=== PATIENT | female | born 1995 | race Caucasian/White ===

== ENCOUNTER 2017-06-02 00:55 | Emergency (ER) | payer MEDICAID ==
[2017-06-02] MEDS ORDERED: lamoTRIgine 100 MG TAB PO ONE (01:04)
[2017-06-02 01:12] VITALS: TEMP 98.4
--- NOTE | 2017-06-02 01:18 | EDPHY ---
H & P Stated Complaint: pt states that she Marek on meth Time Seen by Provider: 06/02/17 01:04 HPI/ROS: Chief Complaint: Seizure, possible meth overdose. HPI: 21 year female with a history of seizure disorder, type 2 diabetes, hypothyroidism and meth abuse. Patient states that she has used methamphetamine the the inhaled all day. She thinks she has smoked up to 6 g. She thinks that after the last 1 she may have overdosed on too much is feeling jittery nauseated. Patient also reporting that she had 2 seizures today. She had 6 seizures 2 days ago was seen at [facility]. At that time they increased her Lamictal to 100 mg twice a day. She has not gotten a prescription filled however. She thinks this was yesterday ago looking the prescription was written 2 days ago. I reviewed her records and she was seen [address] [facility] ([place], [place]) and was given Keppra at that time. Patient to have a tonic- clonic witnessed seizure during the emetic here. She is given 10 mg of Valium IV. Patient has not had any chest pain. Has had some mild palpitations. No shortness of breath. Is mostly complaining of feeling nauseated in general malaise. ROS: 10 point Review of Systems is negative except as noted in the HPI. PMH: Seizure disorder, type 2 diabetes, hypothyroidism Social History: Positive smoking, positive alcohol, positive methamphetamine use Family History: non-contributory Physical Exam: Gen: Awake, Alert, No Distress HEENT: Nose: no rhinorrhea Eyes: PERRLA, EOMI Mouth: Moist mucosa Neck: Supple, no JVD Chest: nontender, lungs clear to auscultation Heart: S1, S2 normal, no murmur Abd: Soft, non-tender, no guarding Back: no CVA tenderness, no midline tenderness Ext: no edema, non-tender Skin: no rash Neuro: CN II-XII intact, Sensation grossly intact, Strength 5/5 in bilateral upper and lower extremities - Personal History LMP (Females 10-55): 15-21 Days Ago Current Tetanus Diphtheria and Acellular Pertussis (TDAP): Unsure - Medical/Surgical History Other PMH: seizures, hypothyroid, hypoglycemia, sleep apnea, reflux, ptsd, border line, multiple personalilty, bipolar, schzophrenia, anxiety - Social History Smoking Status: Current every day smoker Constitutional: Initial Vital Signs Temperature (C) 36.9 C 06/02/17 00:55 Heart Rate 65 06/02/17 00:55 Respiratory Rate 16 06/02/17 00:55 Blood Pressure 148/99 H 06/02/17 00:55 O2 Sat (%) 99 06/02/17 00:55 O2 Delivery Mode Nasal Cannula O2 (L/minute) 2 Allergies/Adverse Reactions: diphenhydramine [From Benadryl] Allergy (Verified 06/02/17 01:04) iodine Allergy (Verified 06/02/17 01:04) kiwi Allergy (Verified 06/02/17 01:04) mushroom Allergy (Verified 06/02/17 01:04) olives Allergy (Uncoded 06/02/17 01:04) peaches Allergy (Uncoded 06/02/17 01:04) seafood Allergy (Uncoded 06/02/17 01:04) Home Medications: Medication Instructions Recorded LaMICtal 06/02/17 Metformin HCl 06/02/17 Prilosec 06/02/17 Synthroid 06/02/17 Wellbutrin Sr 06/02/17 Zoloft 100mg (*) 06/02/17 Medical Decision Making ED Course/Re-evaluation: Patient is feeling improved. I have reviewed her records from [facility]. She was seen 2 days ago and prescribed scribed Lamictal 100 mg twice a day. She has gotten her Lamictal here. She has not had any further seizure activity after 2 and 0.5 hr of observation. She is feeling much better. She is not tachycardic. Her ECG is normal. Will discharge with follow-up as an outpatient. She has a prescription for the Lamictal she states she has a means to get that filled. - Data Points Laboratory Results: Laboratory Results 06/02/17 01:15 06/02/17 01:15 06/02/17 06/02/17 01:15 01:15 WBC 12.10 10^3/uL H 10^3/uL (3.80-9.50) RBC 4.84 10^6/uL 10^6/uL (4.18-5.33) Hgb 15.2 g/dL g/dL (12.6-16.3) Hct 43.6 % % (38.0-47.0) MCV 90.1 fL fL (81.5-99.8) MCH 31.4 pg pg (27.9-34.1) MCHC 34.9 g/dL g/dL (32.4-36.7) RDW 12.6 % % (11.5-15.2) Plt Count 365 10^3/uL 10^3/uL (150-400) MPV 10.7 fL fL (8.7-11.7) Neut % (Auto) 55.7 % % (39.3-74.2) Lymph % (Auto) 35.4 % % (15.0-45.0) Logan % (Auto) 6.9 % % (4.5-13.0) Eos % (Auto) 0.9 % % (0.6-7.6) Baso % (Auto) 0.7 % % (0.3-1.7) Nucleat RBC Rel Count 0.0 % % (0.0-0.2) Absolute Neuts (auto) 6.75 10^3/uL H 10^3/uL (1.70-6.50) Absolute Lymphs (auto) 4.28 10^3/uL H 10^3/uL (1.00-3.00) Absolute Monos (auto) 0.83 10^3/uL H 10^3/uL (0.30-0.80) Absolute Eos (auto) 0.11 10^3/uL 10^3/uL (0.03-0.40) Absolute Basos (auto) 0.08 10^3/uL 10^3/uL (0.02-0.10) Absolute Nucleated RBC 0.00 10^3/uL 10^3/uL (0-0.01) Immature Gran % 0.4 % % (0.0-1.1) Immature Gran # 0.05 10^3/uL 10^3/uL (0.00-0.10) Sodium 147 mEq/L H mEq/L (134-144) Potassium 3.9 mEq/L mEq/L (3.5-5.2) Chloride 109 mEq/L mEq/L (97-110) Carbon Dioxide 20 mEq/l L mEq/l (22-31) Anion Gap 18 mEq/L H mEq/L (8-16) BUN 10 mg/dL mg/dL (7-23) Creatinine 0.8 mg/dL mg/dL (0.6-1.0) Estimated GFR > 60 Glucose 96 mg/dL mg/dL (70-100) Calcium 10.5 mg/dL H mg/dL (8.5-10.4) Medications Given: Discontinued Medications Lamotrigine (Lamictal) 100 mg PO EDNOW ONE Stop: 06/02/17 01:05 Last Admin: 06/02/17 01:41 Dose: 100 mg Departure - Departure Disposition: Home, Routine, Self-Care Clinical Impression: Seizure, Polysubstance abuse Condition: Good Instructions: Epilepsy (ED), Polysubstance Abuse (ED) Additional Instructions: Follow up with primary care physician in 3-4 days for further evaluation. Follow up with your neurologist in 3-4 days for further evaluation Make sure to get her prescription for your Lamictal filled and take it as prescribed. Return to the emergency department for increasing seizures, chest pain, shortness of breath, nausea, vomiting, or any other concerns. Referrals: Patient,NotPresent [Unknown] - As per Instructions
[2017-06-02 01:22] LABS: PLATELET COUNT 365 10^3/uL (150-400)
--- NOTE | 2017-06-02 01:28 | CPEKG ---
Heart Rate: 55 RR Interval: 1091 P-R Interval: 143 QRSD Interval: 80 QT Interval: 432 QTC Interval: 414 P Snelling: 15 QRS Snelling: 20 T Wave Snelling: 15 EKG Severity - NORMAL ECG - EKG Impression: SINUS RHYTHM Electronically Signed By: Sánchez Reno 03-Jun-2017 06:04:43
[2017-06-02 03:29] VITALS: BP 115/86; PULSE 76; RESP 18; O2SAT 98
== END 2017-06-02 03:29 | disposition home or self-care (01) ==
DX: G40.909 Epilepsy, unspecified, not intractable, without status epilepticus (principal); F19.10 Other psychoactive substance abuse, uncomplicated; E11.9 Type 2 diabetes mellitus without complications; F17.200 Nicotine dependence, unspecified, uncomplicated; Z79.84 Long term (current) use of oral hypoglycemic drugs